=== PATIENT | female | born 1940 | race African-American/Black ===

== ENCOUNTER 2017-08-03 14:30 | Inpatient (IN) | payer MEDICARE ==
[2017-08-03 16:08] LABS: BASO # 0.1 x10^3/uL (0.0-0.2); BASO % 1 % (0-3); EOS % 0 % (0-3); HEMATOCRIT 35.4 % (36.0-47.0); LYMPH % 7 % (24-48); MEAN CORPUSCULAR HEMOGLOBIN 30 pg (25-35); MEAN CORPUSCULAR HGB CONC 34 g/dL (31-37); MEAN CORPUSCULAR VOLUME 88 fL (79-100); MONO # 0.8 x10^3/uL (0.0-1.1); MONO % 5 % (0-9); NEUT # 13.1 x10^3uL (1.8-7.7); NEUT % 88 % (31-73); PLATELET COUNT 274 x10^3/uL (140-400); RED BLOOD COUNT 4.03 x10^6/uL (3.50-5.40); RED CELL DISTRIBUTION WIDTH 16.3 % (11.5-14.5)
[2017-08-03 16:09] LABS: ADD MAN DIFF? YES
[2017-08-03 16:18] LABS: ANION GAP 9 (6-14); BLOOD UREA NITROGEN 12 mg/dL (7-20); BUN/CREATININE RATIO 12 (6-20); CALCIUM 9.8 mg/dL (8.5-10.1); CARBON DIOXIDE 31 mmol/L (21-32); CHLORIDE 101 mmol/L (98-107); GFR 65.2; GLUCOSE 146 mg/dL (70-99); POTASSIUM 3.3 mmol/L (3.5-5.1); SODIUM 141 mmol/L (136-145)
[2017-08-03 16:23] LABS: BILIRUBIN,URINE NEGATIVE (NEG); CLARITY,URINE CLEAR; COLOR,URINE YELLOW; GLUCOSE,URINE NEGATIVE (NEG); NITRITE,URINE NEGATIVE (NEG); PH,URINE 5.5; PROTEIN,URINE NEGATIVE (NEG-TRACE); UROBILINOGEN,URINE 0.2 mg/dL (0.2 mg/dL)
[2017-08-03 16:24] LABS: ALBUMIN 3.1 g/dL (3.4-5.0); ALBUMIN/GLOBULIN RATIO 0.7 (1.0-1.7); ALK PHOS 87 U/L (46-116); ALT (SGPT) 18 U/L (14-59); AST (SGOT) 17 U/L (15-37); TOTAL BILIRUBIN 0.3 mg/dL (0.2-1.0); TOTAL PROTEIN 7.6 g/dL (6.4-8.2)
[2017-08-03 16:26] LABS: LACTIC ACID 2.6 mmol/L (0.4-2.0)
[2017-08-03 16:38] LABS: BACTERIA,URINE 0 /HPF (0-FEW); WBC,URINE OCC /HPF (0-4)
[2017-08-03 16:39] LABS: HYALINE CASTS, URINE MANY /HPF
[2017-08-03 16:43] LABS: % LYMPHS 6 % (24-48); % MONOS 4 % (0-10); % SEGS 90 % (35-66)
[2017-08-03 16:44] LABS: PLT ESTIMATE ADEQUATE (ADEQUATE)
[2017-08-03] MEDS ORDERED: PIP/TAZO PER PHARMACY MC (17:00)
[2017-08-03] MEDS ORDERED: ONDANSETRON PF 4 MG/2 ML VIAL. IV (17:00)
[2017-08-03] MEDS ORDERED: fentaNYL PF VIAL 100 MCG/2 ML VIAL IV (17:00)
[2017-08-03 17:23] LABS: INFLUENZA A PATIENT NEGATIVE (NEGATIVE); INFLUENZA B PATIENT NEGATIVE (NEGATIVE); OBC FLU VALID
[2017-08-03] MEDS: PIPERACILLIN/TAZOBACTAM 3.375 GM in IV NORMAL SALINE 50ML 50 ML IV (17:25)
[2017-08-03] MEDS: VANCOMYCIN 1.5 GM in IV DEXTROSE 5 %-0.2 % NACL 500 ML IV (18:08)
[2017-08-03] MEDS: VANCOMYCIN PER PHARMACY MC (19:21)
[2017-08-03 19:37] LABS: LACTIC ACID 3.3 mmol/L (0.4-2.0)
[2017-08-03] MEDS: POTASSIUM CHLORIDE 20 MEQ TABLET.ER. PO (20:00)
[2017-08-03] MEDS: SIMVASTATIN 20 MG TABLET PO (20:36)
[2017-08-03] MEDS: SENNOSIDES/DOCUSATE 8.6/50MG TABLET. PO (20:36)
[2017-08-03] MEDS ORDERED: ALBUTEROL SULFATE 2.5 MG/3 ML NEBU. NEB (21:00)
[2017-08-03] MEDS: IV NORMAL SALINE 1000ML BAG 1,000 ML IV (21:00)
[2017-08-04] MEDS: PIPERACILLIN/TAZOBACTAM 4.5 GM in IV NORMAL SALINE 100ML 100 ML IV ×5 (00:20→23:32)
[2017-08-04 05:09] LABS: ADD MAN DIFF? NO
[2017-08-04 05:13] LABS: BASO # 0.1 x10^3/uL (0.0-0.2); BASO % 1 % (0-3); EOS % 0 % (0-3); HEMATOCRIT 31.3 % (36.0-47.0); HEMOGLOBIN 10.6 g/dL (12.0-15.5); LYMPH # 1.2 x10^3/uL (1.0-4.8); LYMPH % 12 % (24-48); MEAN CORPUSCULAR HEMOGLOBIN 30 pg (25-35); MEAN CORPUSCULAR HGB CONC 34 g/dL (31-37); MEAN CORPUSCULAR VOLUME 88 fL (79-100); MONO # 0.9 x10^3/uL (0.0-1.1); MONO % 9 % (0-9); NEUT # 7.9 x10^3uL (1.8-7.7); NEUT % 78 % (31-73); PLATELET COUNT 226 x10^3/uL (140-400); RED BLOOD COUNT 3.55 x10^6/uL (3.50-5.40); RED CELL DISTRIBUTION WIDTH 16.6 % (11.5-14.5); WHITE BLOOD COUNT 10.1 x10^3/uL (4.0-11.0)
[2017-08-04 05:38] LABS: ALBUMIN 2.5 g/dL (3.4-5.0); ALBUMIN/GLOBULIN RATIO 0.6 (1.0-1.7); ALK PHOS 73 U/L (46-116); ALT (SGPT) 13 U/L (14-59); ANION GAP 9 (6-14); AST (SGOT) 18 U/L (15-37); BLOOD UREA NITROGEN 8 mg/dL (7-20); BUN/CREATININE RATIO 8 (6-20); CALCIUM 8.7 mg/dL (8.5-10.1); CARBON DIOXIDE 29 mmol/L (21-32); CHLORIDE 103 mmol/L (98-107); GFR 65.2; GLUCOSE 141 mg/dL (70-99); POTASSIUM 3.2 mmol/L (3.5-5.1); SODIUM 141 mmol/L (136-145); TOTAL BILIRUBIN 0.8 mg/dL (0.2-1.0); TOTAL PROTEIN 6.5 g/dL (6.4-8.2)
[2017-08-04] MEDS: ALBUTEROL SULFATE 2.5 MG/3 ML NEBU. NEB ×4 (07:33→20:04)
[2017-08-04] MEDS: MEMANTINE 10 MG TABLET. PO (08:58)
[2017-08-04] MEDS: ASPIRIN ENTERIC COATED 81 MG TABLET.DR. PO (08:58)
[2017-08-04] MEDS: amLODIPine BESYLATE 5 MG TABLET PO (08:58)
[2017-08-04] MEDS: CYANOCOBALAMIN (VITAMIN B-12) 1,000 MCG TABLET. PO (08:59)
[2017-08-04] MEDS: SENNOSIDES/DOCUSATE 8.6/50MG TABLET. PO ×2 (08:59→20:53)
[2017-08-04] MEDS: CHOLECALCIFEROL (VITAMIN D3) 5,000 UNIT CAPSULE PO (08:59)
[2017-08-04] MEDS ORDERED: POLYETHYLENE GLYCOL 3350 17 GM PACKET. PO (09:00)
[2017-08-04] MEDS: IV NORMAL SALINE 1000ML BAG 1,000 ML IV (11:39)
[2017-08-04] MEDS: VANCOMYCIN PER PHARMACY MC (12:43)
[2017-08-04] MEDS: LACTOBACILLUS RHAMNOSUS GG 1 CAPSULE. PO ×2 (15:37→20:53)
[2017-08-04] MEDS: ACETAMINOPHEN 325 MG TABLET. PO (15:38)
[2017-08-04] MEDS: VANCOMYCIN 1 GM in IV NORMAL SALINE 250ML 250 ML IV (17:57)
[2017-08-04] MEDS: SIMVASTATIN 20 MG TABLET PO (20:53)
[2017-08-04 22:09] LABS: MRSA BY PCR Negative (Negative)
[2017-08-05] MEDS: IV NORMAL SALINE 1000ML BAG 1,000 ML IV ×2 (03:11→16:29)
[2017-08-05] MEDS: PIPERACILLIN/TAZOBACTAM 4.5 GM in IV NORMAL SALINE 100ML 100 ML IV ×4 (05:16→23:39)
[2017-08-05] MEDS: ALBUTEROL SULFATE 2.5 MG/3 ML NEBU. NEB ×4 (07:39→19:33)
[2017-08-05] MEDS: amLODIPine BESYLATE 5 MG TABLET PO (08:09)
[2017-08-05] MEDS: MEMANTINE 10 MG TABLET. PO (08:09)
[2017-08-05] MEDS: CHOLECALCIFEROL (VITAMIN D3) 5,000 UNIT CAPSULE PO (08:09)
[2017-08-05] MEDS: LACTOBACILLUS RHAMNOSUS GG 1 CAPSULE. PO ×2 (08:09→21:00)
[2017-08-05] MEDS: ASPIRIN ENTERIC COATED 81 MG TABLET.DR. PO (08:09)
[2017-08-05] MEDS: CYANOCOBALAMIN (VITAMIN B-12) 1,000 MCG TABLET. PO (08:09)
[2017-08-05] MEDS: SENNOSIDES/DOCUSATE 8.6/50MG TABLET. PO ×2 (08:09→21:00)
[2017-08-05 08:16] LABS: ADD MAN DIFF? NO
[2017-08-05 08:21] LABS: BASO # 0.1 x10^3/uL (0.0-0.2); BASO % 1 % (0-3); EOS # 0.2 x10^3/uL (0.0-0.7); EOS % 2 % (0-3); HEMATOCRIT 31.7 % (36.0-47.0); HEMOGLOBIN 10.7 g/dL (12.0-15.5); LYMPH % 20 % (24-48); MEAN CORPUSCULAR HEMOGLOBIN 30 pg (25-35); MEAN CORPUSCULAR HGB CONC 34 g/dL (31-37); MEAN CORPUSCULAR VOLUME 87 fL (79-100); MONO # 0.9 x10^3/uL (0.0-1.1); MONO % 9 % (0-9); NEUT # 6.6 x10^3uL (1.8-7.7); NEUT % 68 % (31-73); PLATELET COUNT 212 x10^3/uL (140-400); RED BLOOD COUNT 3.62 x10^6/uL (3.50-5.40); RED CELL DISTRIBUTION WIDTH 16.4 % (11.5-14.5); WHITE BLOOD COUNT 9.7 x10^3/uL (4.0-11.0)
[2017-08-05 08:29] LABS: ANION GAP 6 (6-14); BLOOD UREA NITROGEN 5 mg/dL (7-20); CALCIUM 8.6 mg/dL (8.5-10.1); CARBON DIOXIDE 31 mmol/L (21-32); CHLORIDE 104 mmol/L (98-107); CREATININE 0.9 mg/dL (0.6-1.0); GFR 73.7; GLUCOSE 121 mg/dL (70-99); SODIUM 141 mmol/L (136-145)
[2017-08-05 08:31] LABS: POTASSIUM 2.8 mmol/L (3.5-5.1)
[2017-08-05] MEDS: POTASSIUM CHLORIDE 20 MEQ TABLET.ER. PO (08:53)
[2017-08-05 19:16] LABS: VANC TR 5.2 mcg/mL (10.0-20.0)
[2017-08-05] MEDS: VANCOMYCIN PER PHARMACY MC (19:39)
[2017-08-05] MEDS: SIMVASTATIN 20 MG TABLET PO (21:00)
[2017-08-05] MEDS: VANCOMYCIN 1.25 GM in IV NORMAL SALINE 250ML 250 ML IV (21:11)
[2017-08-06 04:23] LABS: ADD MAN DIFF? NO
[2017-08-06 04:41] LABS: BASO # 0.1 x10^3/uL (0.0-0.2); BASO % 1 % (0-3); EOS # 0.2 x10^3/uL (0.0-0.7); EOS % 2 % (0-3); HEMATOCRIT 30.1 % (36.0-47.0); HEMOGLOBIN 10.1 g/dL (12.0-15.5); LYMPH % 25 % (24-48); MEAN CORPUSCULAR HEMOGLOBIN 30 pg (25-35); MEAN CORPUSCULAR HGB CONC 34 g/dL (31-37); MEAN CORPUSCULAR VOLUME 88 fL (79-100); MONO # 0.7 x10^3/uL (0.0-1.1); MONO % 9 % (0-9); NEUT # 5.2 x10^3uL (1.8-7.7); NEUT % 64 % (31-73); PLATELET COUNT 217 x10^3/uL (140-400); RED CELL DISTRIBUTION WIDTH 16.5 % (11.5-14.5); WHITE BLOOD COUNT 8.2 x10^3/uL (4.0-11.0)
[2017-08-06 04:45] LABS: ANION GAP 7 (6-14); BLOOD UREA NITROGEN 8 mg/dL (7-20); CALCIUM 8.6 mg/dL (8.5-10.1); CARBON DIOXIDE 29 mmol/L (21-32); CHLORIDE 107 mmol/L (98-107); CREATININE 0.9 mg/dL (0.6-1.0); GFR 73.7; GLUCOSE 110 mg/dL (70-99); POTASSIUM 3.1 mmol/L (3.5-5.1); SODIUM 143 mmol/L (136-145)
[2017-08-06] MEDS: PIPERACILLIN/TAZOBACTAM 4.5 GM in IV NORMAL SALINE 100ML 100 ML IV ×4 (06:04→23:43)
[2017-08-06] MEDS: ALBUTEROL SULFATE 2.5 MG/3 ML NEBU. NEB ×4 (07:13→20:00)
[2017-08-06] MEDS: VANCOMYCIN 1 GM in IV NORMAL SALINE 250ML 250 ML IV ×2 (08:08→20:31)
[2017-08-06] MEDS: CHOLECALCIFEROL (VITAMIN D3) 5,000 UNIT CAPSULE PO (08:10)
[2017-08-06] MEDS: IV NORMAL SALINE 1000ML BAG 1,000 ML IV ×2 (08:11→21:50)
[2017-08-06] MEDS: SENNOSIDES/DOCUSATE 8.6/50MG TABLET. PO ×2 (08:12→20:31)
[2017-08-06] MEDS: CYANOCOBALAMIN (VITAMIN B-12) 1,000 MCG TABLET. PO (08:12)
[2017-08-06] MEDS: LACTOBACILLUS RHAMNOSUS GG 1 CAPSULE. PO ×2 (08:12→20:31)
[2017-08-06] MEDS: MEMANTINE 10 MG TABLET. PO (08:14)
[2017-08-06] MEDS: ASPIRIN ENTERIC COATED 81 MG TABLET.DR. PO (08:14)
[2017-08-06] MEDS: amLODIPine BESYLATE 5 MG TABLET PO (08:14)
[2017-08-06] MEDS: POTASSIUM CHLORIDE 20 MEQ TABLET.ER. PO (11:30)
[2017-08-06] MEDS: SIMVASTATIN 20 MG TABLET PO (20:31)
[2017-08-07 04:39] LABS: ADD MAN DIFF? NO
[2017-08-07 04:43] LABS: BASO # 0.1 x10^3/uL (0.0-0.2); BASO % 1 % (0-3); EOS # 0.2 x10^3/uL (0.0-0.7); EOS % 3 % (0-3); HEMATOCRIT 29.8 % (36.0-47.0); HEMOGLOBIN 9.9 g/dL (12.0-15.5); LYMPH % 24 % (24-48); MEAN CORPUSCULAR HEMOGLOBIN 30 pg (25-35); MEAN CORPUSCULAR HGB CONC 33 g/dL (31-37); MEAN CORPUSCULAR VOLUME 89 fL (79-100); MONO # 0.7 x10^3/uL (0.0-1.1); MONO % 8 % (0-9); NEUT # 5.2 x10^3uL (1.8-7.7); NEUT % 64 % (31-73); PLATELET COUNT 231 x10^3/uL (140-400); RED BLOOD COUNT 3.35 x10^6/uL (3.50-5.40); RED CELL DISTRIBUTION WIDTH 16.6 % (11.5-14.5)
[2017-08-07] MEDS: IV NORMAL SALINE 1000ML BAG 1,000 ML IV (04:57)
[2017-08-07] MEDS: PIPERACILLIN/TAZOBACTAM 4.5 GM in IV NORMAL SALINE 100ML 100 ML IV (05:09)
[2017-08-07 05:13] LABS: ANION GAP 9 (6-14); BLOOD UREA NITROGEN 7 mg/dL (7-20); CARBON DIOXIDE 27 mmol/L (21-32); CHLORIDE 106 mmol/L (98-107); CREATININE 1.2 mg/dL (0.6-1.0); GFR 52.9; GLUCOSE 154 mg/dL (70-99); SODIUM 142 mmol/L (136-145)
[2017-08-07] MEDS: ALBUTEROL SULFATE 2.5 MG/3 ML NEBU. NEB ×2 (07:05→12:12)
[2017-08-07] MEDS: VANCOMYCIN 1 GM in IV NORMAL SALINE 250ML 250 ML IV (08:01)
[2017-08-07] MEDS: SENNOSIDES/DOCUSATE 8.6/50MG TABLET. PO (09:15)
[2017-08-07] MEDS: CHOLECALCIFEROL (VITAMIN D3) 5,000 UNIT CAPSULE PO (09:15)
[2017-08-07] MEDS: ASPIRIN ENTERIC COATED 81 MG TABLET.DR. PO (09:15)
[2017-08-07] MEDS: amLODIPine BESYLATE 5 MG TABLET PO (09:15)
[2017-08-07] MEDS: CYANOCOBALAMIN (VITAMIN B-12) 1,000 MCG TABLET. PO (09:16)
[2017-08-07] MEDS: MEMANTINE 10 MG TABLET. PO (09:16)
[2017-08-07] MEDS: LACTOBACILLUS RHAMNOSUS GG 1 CAPSULE. PO (09:16)
== END 2017-08-07 12:40 | DRG 871 ==
LOC: ER 14:30 → 5 NORTH 16:51
PROVIDERS: Internal Medicine
DX: A41.9 Sepsis, unspecified organism (principal); J18.9 Pneumonia, unspecified organism; E46 Unspecified protein-calorie malnutrition; G92 Toxic encephalopathy; G30.9 Alzheimer's disease, unspecified; F02.80 Dementia in other diseases classified elsewhere, unspecified severity, without behavioral disturbance, psychotic disturbance, mood disturbance, and anxiety; L03.90 Cellulitis, unspecified; W01.0XXA Fall on same level from slipping, tripping and stumbling without subsequent striking against object, initial encounter; Z68.24 Body mass index [BMI] 24.0-24.9, adult; E78.00 Pure hypercholesterolemia, unspecified; E78.5 Hyperlipidemia, unspecified; E87.6 Hypokalemia; I12.9 Hypertensive chronic kidney disease with stage 1 through stage 4 chronic kidney disease, or unspecified chronic kidney disease; N18.9 Chronic kidney disease, unspecified; S00.03XA Contusion of scalp, initial encounter; Z82.0 Family history of epilepsy and other diseases of the nervous system; Z82.49 Family history of ischemic heart disease and other diseases of the circulatory system; Z86.73 Personal history of transient ischemic attack (TIA), and cerebral infarction without residual deficits
CPT/HCPCS: 36415; 70450; 71045; 72125; 80048; 80053; 80202; 81001; 83605; 85007; 85025; 87040; 87641; 87804; 87804-59; 93005; 94640; 94760; 96374; 97161-GP; 97166-GO; 97530-GO; 97535-GO; 99285; 99285-25; J2543; J3370; J7030; J7050; J7613

== ENCOUNTER 2018-01-11 15:14 | Emergency (ER) | payer MEDICARE ==
[~2018-01-11] VITALS: Ht 162.6 cm; Wt 63.5 kg
[~2018-01-11 15:14] MED LIST: AMLO1CAP10 PO; AMLO5TAB2 PO; AMOX1TAB58 PO; ASPI-482 PO; CHOL500016 PO; CYAN10005 PO; DONE5TAB7 PO; MEMA10TA PO; MULT1TAB52 PO; POLY255P PO; SENN-37 PO; SIMV20TA3 PO
--- NOTE | 2018-01-11 15:32 | PHYS DOC ---
Past Medical History Past Medical History: Dementia, High Cholesterol, Hypertension, Renal Failure, Other Additional Past Medical Histor: alzheimers, cellulits, acidosis,cognitive communication deficit, falls Past Surgical History: Other Additional Past Surgical Histo: unknown Alcohol Use: None Drug Use: None Adult General Chief Complaint Chief Complaint: SEIZURE HPI HPI Patient is a 77 year old female with a history of hypertension, high cholesterol, dementia, who presents today from a skilled nursing to be evaluated for seizure. Per EMS report patient had a seizure, this state patient has no history of seizures. Patient is alert and oriented to self only. Exam very limited due to patient's limited mental status. Review of Systems Review of Systems Constitutional: Denies fever or chills [] Eyes: Denies change in visual acuity, redness, or eye pain [] HENT: Denies nasal congestion or sore throat [] Respiratory: Denies cough or shortness of breath [] Cardiovascular: No additional information not addressed in HPI [] GI: Denies abdominal pain, nausea, vomiting, bloody stools or diarrhea [] : Denies dysuria or hematuria [] Musculoskeletal: Denies back pain or joint pain [] Integument: Denies rash or skin lesions [] Neurologic: Reports seizures. Denies headache, focal weakness or sensory changes [] All other systems were reviewed and found to be within normal limits, except as documented in this note. Allergies Allergies Allergies Coded Allergies Type Severity Reaction Last Updated Verified No Known Drug Allergies 02/14/17 No Physical Exam Physical Exam Constitutional: Well developed, well nourished, no acute distress, non-toxic appearance. [] HENT: Normocephalic, atraumatic, bilateral external ears normal, oropharynx moist, no oral exudates, nose normal. [] Eyes: PERRLA, EOMI, conjunctiva normal, no discharge. [] Neck: Normal range of motion, no tenderness, supple, no stridor. [] Cardiovascular:Heart rate regular rhythm, no murmur [] Lungs & Thorax: Bilateral breath sounds clear to auscultation [] Abdomen: Bowel sounds normal, soft, no tenderness, no masses, no pulsatile masses. [] Skin: Warm, dry, no erythema, no rash. [] Back: No tenderness, no CVA tenderness. [] Extremities: No tenderness, no cyanosis, no clubbing, ROM intact, no edema. [] Neurologic: Alert and oriented X 1, normal motor function, normal sensory function, no focal deficits noted. Cranial nerves II through XII intact Psychologic: Affect normal, judgement normal, mood normal. [] Current Patient Data Vital Signs Vital Signs Date Time Temp Pulse Resp B/P (MAP) Pulse Ox O2 Delivery O2 Flow Rate FiO2 01/11/18 15:55 97.9 72 20 122/69 (86) 100 Room Air 97.9 Lab Values Laboratory Tests Test 01/11/18 16:20 01/11/18 17:28 White Blood Count 11.0 x10^3/uL (4.0-11.0) Red Blood Count 4.26 x10^6/uL (3.50-5.40) Hemoglobin 12.8 g/dL (12.0-15.5) Hematocrit 37.6 % (36.0-47.0) Mean Corpuscular Volume 88 fL (79-100) Mean Corpuscular Hemoglobin 30 pg (25-35) Mean Corpuscular Hemoglobin Concent 34 g/dL (31-37) Red Cell Distribution Width 16.1 % (11.5-14.5) H Platelet Count 294 x10^3/uL (140-400) Neutrophils (%) (Auto) 74 % (31-73) H Lymphocytes (%) (Auto) 17 % (24-48) L Monocytes (%) (Auto) 7 % (0-9) Eosinophils (%) (Auto) 1 % (0-3) Basophils (%) (Auto) 1 % (0-3) Neutrophils # (Auto) 8.2 x10^3uL (1.8-7.7) H Lymphocytes # (Auto) 1.9 x10^3/uL (1.0-4.8) Monocytes # (Auto) 0.8 x10^3/uL (0.0-1.1) Eosinophils # (Auto) 0.1 x10^3/uL (0.0-0.7) Basophils # (Auto) 0.1 x10^3/uL (0.0-0.2) Sodium Level 146 mmol/L (136-145) H Potassium Level 3.8 mmol/L (3.5-5.1) Chloride Level 104 mmol/L (98-107) Carbon Dioxide Level 34 mmol/L (21-32) H Anion Gap 8 (6-14) Blood Urea Nitrogen 23 mg/dL (7-20) H Creatinine 1.1 mg/dL (0.6-1.0) H Estimated GFR (Cockcroft-Gault) 58.3 BUN/Creatinine Ratio 21 (6-20) H Glucose Level 150 mg/dL (70-99) H Calcium Level 9.8 mg/dL (8.5-10.1) Magnesium Level 2.6 mg/dL (1.8-2.4) H Total Bilirubin 0.2 mg/dL (0.2-1.0) Aspartate Amino Transferase (AST) 19 U/L (15-37) Alanine Aminotransferase (ALT) 18 U/L (14-59) Alkaline Phosphatase 96 U/L (46-116) Creatine Kinase 52 U/L (26-192) Creatine Kinase MB (Mass) < 0.5 ng/mL (0.0-3.6) Creatine Kinase MB Relative Index % (0-4) Troponin I Quantitative < 0.017 ng/mL (0.000-0.055) CQ-Mej-H-Type Natriuretic Peptide 106 pg/mL (0-449) Total Protein 7.4 g/dL (6.4-8.2) Albumin 3.3 g/dL (3.4-5.0) L Albumin/Globulin Ratio 0.8 (1.0-1.7) L Thyroid Stimulating Hormone (TSH) 4.729 uIU/mL (0.358-3.74) H Urine Collection Type U cath Urine Color Yellow Urine Clarity Clear Urine pH 5.0 Urine Specific [place] 1.025 Urine Protein Negative mg/dL (NEG-TRACE) Urine Glucose (UA) 100 mg/dL (NEG) Urine Ketones (Stick) Negative mg/dL (NEG) Urine Blood Negative (NEG) Urine Nitrite Negative (NEG) Urine Bilirubin Small (NEG) Urine Urobilinogen Dipstick 1.0 mg/dL (0.2 mg/dL) Urine Leukocyte Esterase Negative (NEG) Urine RBC 1-2 /HPF (0-2) Urine WBC 0 /HPF (0-4) Urine Squamous Epithelial Cells Occ /LPF Urine Bacteria 0 /HPF (0-FEW) Urine Hyaline Casts Many /HPF Urine Mucus Mod /LPF Urine Opiates Screen Neg (NEG) Urine Methadone Screen Neg (NEG) Urine Barbiturates Neg (NEG) Urine Phencyclidine Screen Neg (NEG) Urine Amphetamine/Methamphetamine Neg (NEG) Urine Benzodiazepines Screen Neg (NEG) Urine Cocaine Screen Neg (NEG) Urine Cannabinoids Screen Neg (NEG) Urine Ethyl Alcohol Neg (NEG) Laboratory Tests 01/11/18 16:20 Laboratory Tests 01/11/18 16:20 EKG EKG 15:[address] Lopez sinus rhythm heart rate 67to[] Radiology/Procedures Radiology/Procedures []PROCEDURE: CT HEAD WO CONTRAST CT of the head without contrast, 01/11/2018: HISTORY: New onset seizure Comparison is made to a study from 08/03/2017. There is moderate cerebral atrophy. There are mild patchy lucencies in the deep white matter bilaterally compatible with chronic ischemic change. The ventricles are mildly enlarged on a compensatory basis. There is no shift of the midline structures. No acute intracranial hemorrhage or mass effect is seen. IMPRESSION: 1. Chronic findings as described above. 2. No acute intracranial abnormality is detected. RS Compliance Statement: One or more of the following individualized dose reduction techniques were utilized for this examination: 1. Automated exposure control 2. Adjustment of the mA and/or kV according to patient size 3. Use of iterative reconstruction technique Electronically signed by: Neptali Gomez MD (01/11/2018 4:02 PM) [facility] DICTATED and SIGNED BY: NEPTALI GOMEZ MD DATE: 01/11/18 0210 PROCEDURE: PORTABLE CHEST 1V EXAM: Chest, single view. HISTORY: Weakness. Seizure. COMPARISON: 08/03/2017 FINDINGS: A frontal view of the chest is obtained. There is no infiltrate, pleural effusion or pneumothorax. The heart is normal in size. IMPRESSION: No acute pulmonary finding. Electronically signed by: Ciara Syed MD (01/11/2018 4:07 PM) [place] [id number] DICTATED and SIGNED BY: CIARA SYED MD DATE: 01/11/18 2328 Course & Med Decision Making Course & Med Decision Making Pertinent Labs and Imaging studies reviewed. (See chart for details) This is a 77-year-old female patient presented to the ED today from a local skilled nursing to be evaluated for seizures. Patient has dementia, information we' re using is from EMS report. Unknown if patient has history of seizures. Patient's labs are negative for any acute findings, negative EKG, negative chest x-ray. UA is negative. 18:15 family present, inquired from them why patient was sent to the ED, they state they do not understand because patient has history of seizures and there is nothing unusual about what they heard today. Reassured them the workup is negative we will send patient back to the skilled nursing and she can follow-up with the primary care doctor. Valentina Disclaimer Dragon Disclaimer This electronic medical record was generated, in whole or in part, using a voice recognition dictation system. Departure Departure Impression: Primary Impression: Seizure Disposition: 01 HOME, SELF-CARE Condition: STABLE Referrals: PRESLEY WHITE MD (PCP) follow up with your doctor in the course of this week Patient Instructions: Seizure, Adult Additional Instructions: You were evaluated in the emergency room for seizure. Your workup is negative for any acute findings. Please follow-up with your primary care doctor in the course of this week. MODESTO MOLINA APRN Jan 11, 2018 15:32
--- NOTE | 2018-01-11 16:06 | RAD ---
CT of the head without contrast, 01/11/2018: HISTORY: New onset seizure Comparison is made to a study from 08/03/2017. There is moderate cerebral atrophy. There are mild patchy lucencies in the deep white matter bilaterally compatible with chronic ischemic change. The ventricles are mildly enlarged on a compensatory basis. There is no shift of the midline structures. No acute intracranial hemorrhage or mass effect is seen. IMPRESSION: 1. Chronic findings as described above. 2. No acute intracranial abnormality is detected. RS Compliance Statement: One or more of the following individualized dose reduction techniques were utilized for this examination: 1. Automated exposure control 2. Adjustment of the mA and/or kV according to patient size 3. Use of iterative reconstruction technique Electronically signed by: Neptali Gomez MD (01/11/2018 4:02 PM) [facility]
--- NOTE | 2018-01-11 16:10 | RAD ---
EXAM: Chest, single view. HISTORY: Weakness. Seizure. COMPARISON: 08/03/2017 FINDINGS: A frontal view of the chest is obtained. There is no infiltrate, pleural effusion or pneumothorax. The heart is normal in size. IMPRESSION: No acute pulmonary finding. Electronically signed by: Ciara Diana MD (01/11/2018 4:07 PM) [place] [id number]
[2018-01-11 16:33] LABS: BASO # 0.1 x10^3/uL (0.0-0.2); BASO % 1 % (0-3); EOS # 0.1 x10^3/uL (0.0-0.7); EOS % 1 % (0-3); HEMATOCRIT 37.6 % (36.0-47.0); HEMOGLOBIN 12.8 g/dL (12.0-15.5); LYMPH # 1.9 x10^3/uL (1.0-4.8); LYMPH % 17 % (24-48); MEAN CORPUSCULAR HEMOGLOBIN 30 pg (25-35); MEAN CORPUSCULAR HGB CONC 34 g/dL (31-37); MEAN CORPUSCULAR VOLUME 88 fL (79-100); MONO # 0.8 x10^3/uL (0.0-1.1); MONO % 7 % (0-9); NEUT # 8.2 x10^3uL (1.8-7.7); NEUT % 74 % (31-73); PLATELET COUNT 294 x10^3/uL (140-400); RED BLOOD COUNT 4.26 x10^6/uL (3.50-5.40); RED CELL DISTRIBUTION WIDTH 16.1 % (11.5-14.5)
[2018-01-11 16:43] LABS: CALCIUM 9.8 mg/dL (8.5-10.1); CREATININE 1.1 mg/dL (0.6-1.0); GFR 58.3; POTASSIUM 3.8 mmol/L (3.5-5.1)
[2018-01-11 16:49] LABS: ALBUMIN 3.3 g/dL (3.4-5.0); ALBUMIN/GLOBULIN RATIO 0.8 (1.0-1.7); MAGNESIUM 2.6 mg/dL (1.8-2.4); TOTAL BILIRUBIN 0.2 mg/dL (0.2-1.0); TOTAL PROTEIN 7.4 g/dL (6.4-8.2)
[2018-01-11 17:08] LABS: CREATINE KINASE 52 U/L (26-192)
--- NOTE | 2018-01-11 17:22 | EKG ---
[facility] [address] [place] [address] Test Date: 2018-01-11 Test Time: 15:54:46 Pat Name: ALO BRICENO Department: Room: Gender: F Search Engine Marketing Specialist: : 1940 Requested By: MODESTO MOLINA Order Number: [id number] Reading MD: Jayden Matos MD Measurements Intervals [place] Rate: 67 P: 51 IA: 162 QRS: 35 QRSD: 66 T: 62 QT: 394 QTc: 419 Interpretive Statements SINUS RHYTHM Electronically Signed On 01-12-2018 12:10:29 CDT by Jayden Matos MD
[2018-01-11 17:41] LABS: BILIRUBIN,URINE SMALL (NEG); CLARITY,URINE CLEAR; COLOR,URINE YELLOW; NITRITE,URINE NEGATIVE (NEG); PROTEIN,URINE NEGATIVE (NEG-TRACE)
[2018-01-11 17:48] LABS: BARBITURATES NEG (NEG); BENZODIAZEPINES NEG (NEG); CANNABINOIDS NEG (NEG); COCAINE NEG (NEG); METHADONE NEG (NEG); OPIATES NEG (NEG); PHENCYCLIDINE NEG (NEG)
[2018-01-11 17:49] LABS: AMPHETAMINE/METHAMPHETAMINE NEG (NEG)
[2018-01-11 18:11] VITALS: BP 130/81
[2018-01-11 18:15] LABS: BACTERIA,URINE 0 /HPF (0-FEW); HYALINE CASTS, URINE MANY /HPF; SQUAMOUS EPITHELIAL CELL,UR OCC /LPF; WBC,URINE 0 /HPF (0-4)
== END 2018-01-11 20:14 | disposition home or self-care (01) ==
LOC: ER 15:14
DX: R56.9 Unspecified convulsions (principal); E78.00 Pure hypercholesterolemia, unspecified; N19 Unspecified kidney failure; I10 Essential (primary) hypertension; G30.9 Alzheimer's disease, unspecified; F02.80 Dementia in other diseases classified elsewhere, unspecified severity, without behavioral disturbance, psychotic disturbance, mood disturbance, and anxiety
CPT/HCPCS: 36415; 70450; 71045; 80053; 80307; 81001; 82553; 83735; 83880; 84443; 84484; 85025; 93005; 99285-25; G0479

== ENCOUNTER 2018-12-26 22:14 | Emergency (ER) | payer OTHER, MEDICARE ==
[~2018-12-26] VITALS: Ht 167.6 cm; Wt 63.5 kg
[~2018-12-26 22:14] MED LIST changes: -AMLO1CAP10 PO; +AMLO1CAP11 PO; +AMLO5TAB10 PO; -AMLO5TAB2 PO; +CYAN-25 PO; -CYAN10005 PO; -POLY255P PO; +POLY255P11 PO
--- NOTE | 2018-12-26 23:05 | PHYS DOC ---
Past Medical History Past Medical History: Dementia, High Cholesterol, Hypertension, Renal Disease Additional Past Medical Histor: alzheimers, cellulits, acidosis,cognitive communication deficit, falls ([place] APRN) Past Surgical History: No Surgical History Additional Past Surgical Histo: unknown ([place] APRN) Alcohol Use: None Drug Use: None ([place] APRN) Adult General Chief Complaint Chief Complaint: ALTERED MENTAL STATUS HPI HPI Patient is a 78 year old female] who presents with [altered level consciousness. Patient reportedly is a [facility], abdomen, staff. Reports patient may have had a brief seizure tonight, had been unresponsive since that time. Patient has a history of Alzheimer's, is normally nonverbal. Staff at nursing facility reports they needed patient evaluated due to the possible seizure patient does have a history of seizures, had been seen at that visit recently for similar findings] ([place] APRN) Review of Systems Review of Systems Patient non-verbal, provides no verbal responses Staff from SNF : Constitutional: Denies fever or chills [] Respiratory: Denies cough or shortness of breath [] Cardiovascular: No additional information not addressed in HPI [] GI: Denies nausea, vomiting, bloody stools or diarrhea [] : Denies dysuria or hematuria [] Neurologic: reports patient possibly had brief seizure[] All other systems were reviewed and found to be within normal limits, except as documented in this note. ([place] APRN) Allergies Allergies Allergies Coded Allergies Type Severity Reaction Last Updated Verified No Known Drug Allergies 02/14/17 No (KAIT PARKER MD) Physical Exam Physical Exam Constitutional: Well developed, well nourished, no acute distress, non-toxic appearance. [] HENT: Normocephalic, atraumatic, bilateral external ears normal, oropharynx moist, no oral exudates, nose normal. [] Eyes: PERRLA, EOMI, conjunctiva normal, no discharge. pupils 2mm [] Neck: Normal range of motion, no tenderness, supple, no stridor. [] Cardiovascular:Heart rate regular rhythm, no murmur [] Lungs & Thorax: Bilateral breath sounds clear to auscultation [] Abdomen: Bowel sounds normal, soft, no tenderness, no masses, no pulsatile masses. [] Skin: Warm, dry, no erythema, no rash. [] Back: No tenderness, no CVA tenderness. [] Extremities: No tenderness, no cyanosis, no clubbing, ROM intact, no edema. [] Neurologic: Alert, nonverbal, follows no commands. no focal deficits noted ([place] APRN) Current Patient Data Vital Signs Vital Signs Date Time Temp Pulse Resp B/P (MAP) Pulse Ox O2 Delivery O2 Flow Rate FiO2 12/27/18 01:15 64 12 98 12/26/18 22:30 97.5 117/70 (86) Room Air 97.5 (KAIT PARKER MD) Lab Values Laboratory Tests Test 12/26/18 22:55 12/26/18 23:09 12/27/18 00:13 White Blood Count 12.6 x10^3/uL (4.0-11.0) H Red Blood Count 4.19 x10^6/uL (3.50-5.40) Hemoglobin 12.5 g/dL (12.0-15.5) Hematocrit 37.6 % (36.0-47.0) Mean Corpuscular Volume 90 fL (79-100) Mean Corpuscular Hemoglobin 30 pg (25-35) Mean Corpuscular Hemoglobin Concent 33 g/dL (31-37) Red Cell Distribution Width 16.0 % (11.5-14.5) H Platelet Count 302 x10^3/uL (140-400) Neutrophils (%) (Auto) 64 % (31-73) Lymphocytes (%) (Auto) 27 % (24-48) Monocytes (%) (Auto) 7 % (0-9) Eosinophils (%) (Auto) 1 % (0-3) Basophils (%) (Auto) 1 % (0-3) Neutrophils # (Auto) 8.0 x10^3/uL (1.8-7.7) H Lymphocytes # (Auto) 3.4 x10^3/uL (1.0-4.8) Monocytes # (Auto) 0.9 x10^3/uL (0.0-1.1) Eosinophils # (Auto) 0.1 x10^3/uL (0.0-0.7) Basophils # (Auto) 0.1 x10^3/uL (0.0-0.2) Lactic Acid Level 2.5 mmol/L (0.4-2.0) H Urine Collection Type U cath Urine Color Bren Urine Clarity Clear Urine pH 5.5 Urine Specific [place] >=1.030 Urine Protein 30 mg/dL (NEG-TRACE) Urine Glucose (UA) Negative mg/dL (NEG) Urine Ketones (Stick) Trace mg/dL (NEG) Urine Blood Negative (NEG) Urine Nitrite Negative (NEG) Urine Bilirubin Small (NEG) Urine Urobilinogen Dipstick 1.0 mg/dL (0.2 mg/dL) Urine Leukocyte Esterase Trace (NEG) Urine RBC 0 /HPF (0-2) Urine WBC 1-4 /HPF (0-4) Urine Squamous Epithelial Cells Occ /LPF Urine Amorphous Sediment Present /HPF Urine Bacteria 0 /HPF (0-FEW) Urine Hyaline Casts Few /HPF Urine Mucus Mod /LPF Sodium Level 146 mmol/L (136-145) H Potassium Level 3.4 mmol/L (3.5-5.1) L Chloride Level 105 mmol/L (98-107) Carbon Dioxide Level 31 mmol/L (21-32) Anion Gap 10 (6-14) Blood Urea Nitrogen 19 mg/dL (7-20) Creatinine 1.2 mg/dL (0.6-1.0) H Estimated GFR (Cockcroft-Gault) 52.6 BUN/Creatinine Ratio 16 (6-20) Glucose Level 132 mg/dL (70-99) H Calcium Level 9.4 mg/dL (8.5-10.1) Total Bilirubin 0.2 mg/dL (0.2-1.0) Aspartate Amino Transferase (AST) 17 U/L (15-37) Alanine Aminotransferase (ALT) 15 U/L (14-59) Alkaline Phosphatase 84 U/L (46-116) Troponin I Quantitative < 0.017 ng/mL (0.000-0.055) Total Protein 6.8 g/dL (6.4-8.2) Albumin 2.9 g/dL (3.4-5.0) L Albumin/Globulin Ratio 0.7 (1.0-1.7) L Laboratory Tests 12/26/18 22:55 Laboratory Tests 12/27/18 00:13 (KAIT PARKER MD) Lab Values Laboratory Tests Test 12/26/18 22:55 12/26/18 23:09 White Blood Count 12.6 x10^3/uL (4.0-11.0) H Red Blood Count 4.19 x10^6/uL (3.50-5.40) Hemoglobin 12.5 g/dL (12.0-15.5) Hematocrit 37.6 % (36.0-47.0) Mean Corpuscular Volume 90 fL (79-100) Mean Corpuscular Hemoglobin 30 pg (25-35) Mean Corpuscular Hemoglobin Concent 33 g/dL (31-37) Red Cell Distribution Width 16.0 % (11.5-14.5) H Platelet Count 302 x10^3/uL (140-400) Neutrophils (%) (Auto) 64 % (31-73) Lymphocytes (%) (Auto) 27 % (24-48) Monocytes (%) (Auto) 7 % (0-9) Eosinophils (%) (Auto) 1 % (0-3) Basophils (%) (Auto) 1 % (0-3) Neutrophils # (Auto) 8.0 x10^3/uL (1.8-7.7) H Lymphocytes # (Auto) 3.4 x10^3/uL (1.0-4.8) Monocytes # (Auto) 0.9 x10^3/uL (0.0-1.1) Eosinophils # (Auto) 0.1 x10^3/uL (0.0-0.7) Basophils # (Auto) 0.1 x10^3/uL (0.0-0.2) Lactic Acid Level 2.5 mmol/L (0.4-2.0) H Urine Collection Type U cath Urine Color Bren Urine Clarity Clear Urine pH 5.5 Urine Specific [place] >=1.030 Urine Protein 30 mg/dL (NEG-TRACE) Urine Glucose (UA) Negative mg/dL (NEG) Urine Ketones (Stick) Trace mg/dL (NEG) Urine Blood Negative (NEG) Urine Nitrite Negative (NEG) Urine Bilirubin Small (NEG) Urine Urobilinogen Dipstick 1.0 mg/dL (0.2 mg/dL) Urine Leukocyte Esterase Trace (NEG) Urine RBC 0 /HPF (0-2) Urine WBC 1-4 /HPF (0-4) Urine Squamous Epithelial Cells Occ /LPF Urine Amorphous Sediment Present /HPF Urine Bacteria 0 /HPF (0-FEW) Urine Hyaline Casts Few /HPF Urine Mucus Mod /LPF Laboratory Tests 12/26/18 22:55 ([place] APRN) EKG EKG @2303 - NSR, no ST changes, no STEMI [] ([place] APRN) Radiology/Procedures Radiology/Procedures Per Dr Falcon, no acute process noted. [] ([place] APRN) Course & Med Decision Making Course & Med Decision Making Pertinent Labs and Imaging studies reviewed. (See chart for details) [] ([place] APRN) Course & Med Decision Making Staff Physician Addendum: I was working in the ER during the course of this patient's visit. I was available for consultation as needed, but I was not directly involved in the care of this patient. (KAIT PARKER MD) Dragon Disclaimer Dragon Disclaimer This electronic medical record was generated, in whole or in part, using a voice recognition dictation system. ([place] APRN) Departure Departure Impression: Primary Impression: Mental status change Disposition: 03 TRANSFER SNF Condition: GOOD Referrals: PRESLEY WHITE MD (PCP) Patient Instructions: Altered Mental Status Additional Instructions: There were no acute findings noted on your examination today. You were not noted to have any seizure activity here. Please continue to give her normal medication routine and follow up with her primary care as needed. She is mildly dehydrated so make sure you are pushing PO fluids for her over the next few days. [place] APRN Dec 26, 2018 23:05 KAIT PARKER MD Dec 27, 2018 22:12
[2018-12-26 23:10] LABS: BASO # 0.1 x10^3/uL (0.0-0.2); BASO % 1 % (0-3); EOS # 0.1 x10^3/uL (0.0-0.7); EOS % 1 % (0-3); HEMATOCRIT 37.6 % (36.0-47.0); HEMOGLOBIN 12.5 g/dL (12.0-15.5); LYMPH # 3.4 x10^3/uL (1.0-4.8); LYMPH % 27 % (24-48); MEAN CORPUSCULAR HEMOGLOBIN 30 pg (25-35); MEAN CORPUSCULAR HGB CONC 33 g/dL (31-37); MEAN CORPUSCULAR VOLUME 90 fL (79-100); MONO # 0.9 x10^3/uL (0.0-1.1); MONO % 7 % (0-9); NEUT % 64 % (31-73); PLATELET COUNT 302 x10^3/uL (140-400); RED BLOOD COUNT 4.19 x10^6/uL (3.50-5.40); WHITE BLOOD COUNT 12.6 x10^3/uL (4.0-11.0)
[2018-12-26 23:20] LABS: BILIRUBIN,URINE SMALL (NEG); CLARITY,URINE CLEAR; COLOR,URINE AMBER; NITRITE,URINE NEGATIVE (NEG); PH,URINE 5.5; PROTEIN,URINE 30 mg/dL (NEG-TRACE)
[2018-12-26 23:54] LABS: BACTERIA,URINE 0 /HPF (0-FEW); RBC,URINE 0 /HPF (0-2)
[2018-12-26 23:55] LABS: AMORPHOUS SEDIMENT,UR PRESENT /HPF; HYALINE CASTS, URINE FEW /HPF; SQUAMOUS EPITHELIAL CELL,UR OCC /LPF
[2018-12-27 00:50] LABS: CALCIUM 9.4 mg/dL (8.5-10.1); CREATININE 1.2 mg/dL (0.6-1.0); GFR 52.6; POTASSIUM 3.4 mmol/L (3.5-5.1)
[2018-12-27 00:55] LABS: ALBUMIN 2.9 g/dL (3.4-5.0); ALBUMIN/GLOBULIN RATIO 0.7 (1.0-1.7); TOTAL BILIRUBIN 0.2 mg/dL (0.2-1.0); TOTAL PROTEIN 6.8 g/dL (6.4-8.2)
[2018-12-27 01:15] VITALS: BP 104/48
--- NOTE | 2018-12-27 07:52 | EKG ---
[facility] [address] [place] [address] Test Date: 2018-12-26 Test Time: 23:00:42 Pat Name: ALO BRICENO Department: Room: Gender: F [employer]: [id number] : 1940 Requested By: [place]AT [place] Order Number: [id number] Reading MD: Measurements Intervals [place] Rate: 80 P: 48 MN: 162 QRS: 19 QRSD: 68 T: 49 QT: 374 QTc: 435 Interpretive Statements SINUS RHYTHM NORMAL ECG RI6.01 No previous ECG available for comparison
--- NOTE | 2018-12-27 08:01 | RAD ---
PORTABLE CHEST 1V History: Altered level of consciousness. Comparison: January 11, 2018 and August 03, 2017. Findings: No consolidation or pleural effusion. Normal heart size. Mild elevation of the right hemidiaphragm, unchanged. Impression: 1. No acute cardiopulmonary process. Electronically signed by: Kike Godwin DO (12/27/2018 7:58 AM) [facility]
== END 2018-12-27 01:34 | disposition home or self-care (01) ==
LOC: ER 22:14
DX: R41.82 Altered mental status, unspecified (principal); E78.00 Pure hypercholesterolemia, unspecified; I10 Essential (primary) hypertension; F03.90 Unspecified dementia, unspecified severity, without behavioral disturbance, psychotic disturbance, mood disturbance, and anxiety
CPT/HCPCS: 36415; 71045; 80053; 81001; 83605; 84484; 85025; 87086; 93005; 99285

== ENCOUNTER 2019-04-07 21:14 | Emergency (ER) | payer MEDICARE, OTHER ==
[~2019-04-07] VITALS: Ht 165.1 cm; Wt 63.5 kg
[~2019-04-07 21:14] MED LIST changes: +SIMV20TA18 PO; -SIMV20TA3 PO
--- NOTE | 2019-04-07 21:37 | PHYS DOC ---
Past Medical History Past Medical History: Dementia, High Cholesterol, Hypertension, Renal Disease Additional Past Medical Histor: alzheimers, cellulits, acidosis,cognitive communication deficit, falls Past Surgical History: No Surgical History Additional Past Surgical Histo: unknown Alcohol Use: None Drug Use: None Adult General Chief Complaint Chief Complaint: MECHANICAL FALL HPI HPI Patient is a 78 year old female who arrives via EMS after reportedly falling at nursing facility. Family was notified of the fall and they requested that patient be brought in for evaluation. Patient does have baseline dementia and reportedly is acting normal for herself. EMS does indicate that patient sustained a small hematoma to her left forehead. Upon arrival, patient denies being in any pain. It is difficult to obtain additional history due to patient history of dementia.[] Review of Systems Review of Systems Constitutional: No reported fever or chills [] Respiratory: Denies cough or shortness of breath [] Cardiovascular: No additional information not addressed in HPI [] GI: No reported vomiting or diarrhea [] Musculoskeletal: Denies back pain or joint pain [] Integument: Denies rash or skin lesions [] Neurologic: Denies headache [] All other systems were reviewed and found to be within normal limits, except as documented in this note. Allergies Allergies Allergies Coded Allergies Type Severity Reaction Last Updated Verified No Known Drug Allergies 02/14/17 No Physical Exam Physical Exam Constitutional: Well developed, well nourished, no acute distress, non-toxic appearance. [] HENT: Normocephalic, with very small hematoma noted to the left frontal forehead region, bilateral external ears normal, oropharynx moist, no oral exudates, nose normal. [] Eyes: PERRLA, EOMI, conjunctiva normal, no discharge. [] Neck: Normal range of motion, no tenderness, supple, no stridor. [] Cardiovascular: Regular rate and rhythm[] Lungs & Thorax: Bilateral breath sounds clear to auscultation [] Abdomen: Bowel sounds normal, soft, no tenderness. [] Skin: Warm, dry, no erythema, no rash. [] Back: No spinous point tenderness. [] Extremities: No tenderness, no cyanosis, no clubbing, ROM intact. [] Neurologic: Awake and alert, no focal deficits noted. [] Current Patient Data Vital Signs Vital Signs Date Time Temp Pulse Resp B/P (MAP) Pulse Ox O2 Delivery O2 Flow Rate FiO2 04/07/19 21:20 97.9 69 20 137/67 (90) 97 Room Air 97.9 EKG EKG [] Radiology/Procedures Radiology/Procedures [] Impressions: PROCEDURE: CT HEAD AND CERVICAL SPINE WO Examination: CT head and cervical spine without contrast CT head without contrast History: Fall. Comparison: None. Procedure: Axial images are obtained of the head from the skull base through the vertex without IV contrast. Findings: The ventricles and sulci are normal for the patient's age. No mass-effect, intracranial mass, midline shift, hemorrhage or obvious acute infarction is identified. Basilar cisterns are patent. Bone windows demonstrate no significant calvarial abnormality. The visualized paranasal sinuses appear clear. Impression: 1. No acute intracranial process. CT CERVICAL SPINE INDICATION: COMPARISON: None Available. Technique: 2.5 mm contiguous axial images were obtained from the skull base through the cervicothoracic junction in both bone and soft tissue algorithm. Additional sagittal and coronal reconstructions were also performed. FINDINGS: Vertebral body height and alignment are maintained. Cervical lordosis is preserved. The lateral masses of C1 are aligned upon C2. No fractures identified. The bony canal is patent throughout. Mild intervertebral disc height loss identified throughout the cervical spine likely degenerative changes. The paraspinous soft tissues are unremarkable. Visualized intracranial contents are unremarkable. Lung apices are clear. IMPRESSION: 1. No acute fracture of the cervical spine. Correlate clinically. 2. Mild diffuse degenerative changes cervical spine. Electronically signed by: Anthony Lomeli MD (04/07/2019 9:55 PM) [facility] DICTATED and SIGNED BY: ANTHONY LOMELI MD DATE: 04/07/192154 Course & Med Decision Making Course & Med Decision Making Pertinent Labs and Imaging studies reviewed. (See chart for details) [] Dragon Disclaimer Dragon Disclaimer This electronic medical record was generated, in whole or in part, using a voice recognition dictation system. Departure Departure Impression: Primary Impression: Closed head injury Additional Impression: Fall Disposition: 01 HOME, SELF-CARE Condition: STABLE Referrals: PRESLEY WHITE MD (PCP) Patient Instructions: Head Injury, Adult Problem Qualifiers Primary Impression: Closed head injury Encounter type: initial encounter Qualified Codes: S09.90XA - Unspecified injury of head, initial encounter Additional Impression: Fall Encounter type: initial encounter Qualified Codes: W19.XXXA - Unspecified fall, initial encounter ZARINA STRANGE Jr. DO Apr 07, 2019 21:37
--- NOTE | 2019-04-07 21:58 | RAD ---
Examination: CT head and cervical spine without contrast CT head without contrast History: Fall. Comparison: None. Procedure: Axial images are obtained of the head from the skull base through the vertex without IV contrast. Findings: The ventricles and sulci are normal for the patient's age. No mass-effect, intracranial mass, midline shift, hemorrhage or obvious acute infarction is identified. Basilar cisterns are patent. Bone windows demonstrate no significant calvarial abnormality. The visualized paranasal sinuses appear clear. Impression: 1. No acute intracranial process. CT CERVICAL SPINE INDICATION: COMPARISON: None Available. Technique: 2.5 mm contiguous axial images were obtained from the skull base through the cervicothoracic junction in both bone and soft tissue algorithm. Additional sagittal and coronal reconstructions were also performed. FINDINGS: Vertebral body height and alignment are maintained. Cervical lordosis is preserved. The lateral masses of C1 are aligned upon C2. No fractures identified. The bony canal is patent throughout. Mild intervertebral disc height loss identified throughout the cervical spine likely degenerative changes. The paraspinous soft tissues are unremarkable. Visualized intracranial contents are unremarkable. Lung apices are clear. IMPRESSION: 1. No acute fracture of the cervical spine. Correlate clinically. 2. Mild diffuse degenerative changes cervical spine. Electronically signed by: Anthony Lomeli MD (04/07/2019 9:55 PM) [id number]
[2019-04-07 22:54] VITALS: BP 106/52
== END 2019-04-07 23:31 | disposition home or self-care (01) ==
LOC: ER 21:14
DX: S00.83XA Contusion of other part of head, initial encounter (principal); R51 Headache; E78.00 Pure hypercholesterolemia, unspecified; I10 Essential (primary) hypertension; G30.9 Alzheimer's disease, unspecified; F02.81 Dementia in other diseases classified elsewhere, unspecified severity, with behavioral disturbance; R41.841 Cognitive communication deficit; Y93.89 Activity, other specified; W18.39XA Other fall on same level, initial encounter; Y92.89 Other specified places as the place of occurrence of the external cause; Y99.8 Other external cause status
CPT/HCPCS: 70450; 72125; 99284

== ENCOUNTER 2021-08-12 07:43 | Emergency (ER) | payer MEDICARE, OTHER ==
[~2021-08-12] VITALS: Ht 165.1 cm; Wt 63.6 kg
[~2021-08-12 07:43] MED LIST changes: +ACET325T9 PO; +AMLO-186 PO; -AMLO5TAB10 PO; +CARB-183 PO; +HYDR-2868 PO; +MAGN400O7 PO; +MULT-445 PO; -MULT1TAB52 PO; +SENN8.8S13 PO
[2021-08-12] MEDS ORDERED: LIDOCAINE 2% JELLY 6ML IN APPLICATOR. MM ONE (08:15)
--- NOTE | 2021-08-12 09:28 | ED.ADGEN ---
Past Medical History Past Medical History: Dementia, High Cholesterol, Hypertension, Renal Disease Additional Past Medical Histor: alzheimers,cellulits,acidosis,cognitive communication deficit,falls,CKD, Past Surgical History: Other Additional Past Surgical Histo: FEEDING TUBE PLACEMENT,DYSPHAGIA Smoking Status: Unknown if ever smoked Alcohol Use: None Drug Use: None General Adult EDM: Chief Complaint: GTUBE REPLACEMENT/MALFUNCTION HPI: HPI: Patient is a 80 year old female coming in from nursing facility for dislodged PEG tube. The tube was found to be dislodged this morning prior to arrival, unknown how long has been out. Per chart review the last visit the patient had here was in Aprileses about 4 months (and does not mention having a tube. Call the facility but the nurse is unsure of when the tube was placed and again how long it had been displaced. Patient is nonverbal and unable to assist in history Review of Systems: Review of Systems: All other systems within normal limits except for as noted in the HPI Current Medications: Current Medications Medications (Trade) Dose Ordered Sig/Adelaida Start Time Stop Time Status Last Admin Dose Admin Cefazolin Sodium (Ancef) 1 gm STK-MED ONCE 08/12/21 10:58 08/12/21 10:58 DC Fentanyl Citrate (Fentanyl 2ml Vial) 100 mcg STK-MED ONCE 08/12/21 10:56 08/12/21 10:57 DC Info (CONTRAST GIVEN -- Rx MONITORING) 1 each PRN DAILY PRN 08/12/21 11:30 08/14/21 11:29 Iohexol (Omnipaque 240 Mg/ml) 50 ml 1X ONCE 08/12/21 11:30 08/12/21 11:31 08/12/21 11:24 10 ML Lidocaine HCl (Glydo (Lidocaine) Jelly) 1 susan 1X ONCE 08/12/21 08:15 08/12/21 08:16 DC 08/12/21 08:15 1 SUSAN Midazolam HCl (Versed) 2 mg STK-MED ONCE 08/12/21 10:56 08/12/21 10:57 DC Allergies: Allergies: Allergies Coded Allergies Type Severity Reaction Last Updated Verified No Known Drug Allergies 05/02/21 No Physical Exam: PE: Constitutional: Well developed, well nourished, no acute distress, non-toxic appearance. [] HENT: Normocephalic, atraumatic, bilateral external ears normal, nose normal. [] Eyes: PERRLA, conjunctiva normal, no discharge. [] Neck: No rigidity, supple, no stridor. [] Cardiovascular: Regular rate and rhythm, brisk cap refill [] Lungs & Thorax: Non labored symmetric respirations, no tachypnea or respiratory distress [] Abdomen: Soft, nondistended, PEG tube site open, no drainage, scant amount of blood, no surrounding erythema. Skin: Warm, dry, no erythema, no rash. [] Back: Unremarkable Extremities: No deformities, range of motion grossly intact, no lower extremity edema [] Neurologic: Alert and oriented X 3, no focal deficits noted. [] Psychologic: Affect normal, judgement normal, mood normal. [] Current Patient Data: Vital Signs: Vital Signs Date Time Temp Pulse Resp B/P (MAP) Pulse Ox O2 Delivery O2 Flow Rate FiO2 08/12/21 10:46 74 127/77 (94) 97 Room Air 08/12/21 07:43 98.4 20 98.4 EKG: EKG: [] Heart Score: C/O Chest Pain: No Risk Factors: Risk Factors: DM, Current or recent (<one month) smoker, HTN, HLP, family history of CAD, obesity. Risk Scores: Score 0 - 3: 2.5% MACE over next 6 weeks - Discharge Home Score 4 - 6: 20.3% MACE over next 6 weeks - Admit for Clinical Observation Score 7 - 10: 72.7% MACE over next 6 weeks - Early Invasive Strategies Radiology/Procedures: Radiology/Procedures: [] Course & Med Decision Making: Course & Med Decision Making Attempted to replacement with an 18-gauge (what patient reportedly previously had) and then a 16-gauge. On both attempts gentle pressure was used with lidocaine jelly. Tube was not able to advance to the tract. Consulted IR due to concern about how long the tube is been out and how long ago the tube was . Tube placed by IR without complication. Placed. Dragaaliyah Disclaimer: Dragaaliyah Disclaimer: This electronic medical record was generated, in whole or in part, using a voice recognition dictation system. Departure Departure Impression: Primary Impression: Dislodged gastrostomy tube Disposition: [facility] Condition: IMPROVED Referrals: AQUILES GUZMAN MD (PCP) Patient Instructions: Gastric Tube Replacement TOMMY DREW MD Aug 12, 2021 09:28
[2021-08-12 10:46] VITALS: BP 127/77
[2021-08-12] MEDS ORDERED: IOHEXOL 240 MG/ML 50ML VIAL. ONE (10:50)
[2021-08-12] MEDS ORDERED: MIDAZOLAM HCL/PF 2 MG/2 ML VIAL. ONE (10:56)
[2021-08-12] MEDS ORDERED: fentaNYL PF VIAL 100 MCG/2 ML VIAL ONE (10:56)
[2021-08-12] MEDS ORDERED: ceFAZolin SODIUM IV Push 1 GM VIAL. IVP ONE (10:58)
[2021-08-12] MEDS ORDERED: CONTRAST GIVEN. MC PRN (11:30)
[2021-08-12] MEDS ORDERED: IOHEXOL 240 MG/ML 50ML VIAL. IJ ONE (11:30)
--- NOTE | 2021-08-12 15:04 | RAD ---
Fluoroscopically guided replacement of percutaneous gastrostomy tube through pre-existing tract INDICATION: Inadvertent removal of percutaneous gastrostomy tube Consent: The procedure was explained in its entirety to the patient or the patients designated repres entative by a member of the treatment team, including a discussion of the risks, benefits and commonl y accepted alternatives to the procedure, as well as the expected consequences of no therapy whatsoev er. Discussion of the risks included, but was not limited to, those that are most frequent and thos e that are rare but possibly severe or life-threatening, as well as the possibility of unforeseen com plications. The patient was placed in the supine position. A timeout procedure was performed. The prior gastrosto my tube exit site was identified on the skin. A catheter was advanced into the gastric lumen which wa s confirmed with this administration of a small amount of water-soluble contrast. Eye guidewire was a dvanced through the catheter to the stomach. A new 18 Turkish gastrostomy tube was advanced over the w yoana into the stomach. The retention balloon was filled with 10 cc sterile water. The catheter was sec ured in place. Repeat contrast administration confirms new gastrostomy tube position. Sterile dressin gs were applied. No immediate complications were identified. Total fluoroscopy time: 2 minutes Dose area product: 5 Demarco centimeter squared Impression: Successful fluoroscopically guided replacement of percutaneous gastrostomy tube through t he pre-existing tract Electronically signed by: Drake Leslie MD (08/12/2021 3:02 PM) [id number]
== END 2021-08-12 12:53 ==
LOC: ER 07:43
DX: K94.23 Gastrostomy malfunction (principal); E78.00 Pure hypercholesterolemia, unspecified; G30.9 Alzheimer's disease, unspecified; F02.80 Dementia in other diseases classified elsewhere, unspecified severity, without behavioral disturbance, psychotic disturbance, mood disturbance, and anxiety; I12.9 Hypertensive chronic kidney disease with stage 1 through stage 4 chronic kidney disease, or unspecified chronic kidney disease; N18.9 Chronic kidney disease, unspecified; Y83.8 Other surgical procedures as the cause of abnormal reaction of the patient, or of later complication, without mention of misadventure at the time of the procedure; Y92.89 Other specified places as the place of occurrence of the external cause
CPT/HCPCS: 49450; 99285; B4087; C1769; Q9966; 43762